=== PATIENT | male | born 1970 ===

== ENCOUNTER → 2023-02-22 | Outpatient (CLI) | payer OTHER | LOC: LAB SHORT 11:43 → LAB 11:43 | DX: N41.0 Acute prostatitis (principal) | CPT/HCPCS: 87086 ==

== ENCOUNTER → 2024-11-03 | Outpatient (CLI) | payer OTHER | END | disposition home or self-care (01) | LOC: LAB 10:01 → LAB SHORT 10:01 | DX: N41.0 Acute prostatitis (principal) | CPT/HCPCS: 87086 ==